=== PATIENT | female | born 1970 | race Caucasian/White ===

== ENCOUNTER → 2016-12-24 | Outpatient (CLI) | payer BC ==
--- NOTE | 2016-12-24 15:55 | KCIC ---
EXAM: Left second finger, 3 views. HISTORY: Blunt trauma. COMPARISON: None. FINDINGS: Frontal, lateral and oblique views of the left second finger are obtained. There is no fracture, dislocation or subluxation. No radiodense foreign body is seen. IMPRESSION: No acute osseous finding. Electronically signed by: Arminda Arana MD (12/24/2016 3:51 PM) [email or web address]
== END | disposition home or self-care (01) ==
LOC: KCIC 15:29
PROVIDERS: ATTEND Nurse Practitioner Family
DX: M79.645 Pain in left finger(s) (principal)
CPT/HCPCS: 73140

== ENCOUNTER → 2017-06-19 | Outpatient (CLI) | payer BC | END | disposition home or self-care (01) | LOC: US 08:25 | DX: E11.9 Type 2 diabetes mellitus without complications (principal); I11.9 Hypertensive heart disease without heart failure; E66.9 Obesity, unspecified; M79.605 Pain in left leg; M79.604 Pain in right leg; Z87.891 Personal history of nicotine dependence | CPT/HCPCS: 93306; 93923; 93970 ==

== ENCOUNTER → 2018-07-01 | Outpatient (CLI) | payer BC ==
--- NOTE | 2018-07-01 15:41 | KCIC ---
EXAM: Bilateral feet, 3 views. HISTORY: Pain. COMPARISON: None. FINDINGS: 3 views of both feet are obtained. There is no fracture, dislocation or subluxation. There is minimal first metatarsal phalangeal joint spurring. There is slight enthesopathy at the Achilles tendon insertions. There is a tiny left plantar spur. IMPRESSION: No acute osseous finding. Electronically signed by: Arminda Arana MD (07/01/2018 3:39 PM) [email or web address]
== END | disposition home or self-care (01) ==
LOC: KCIC 14:06
PROVIDERS: ATTEND Nurse Practitioner Family
DX: M77.52 Other enthesopathy of left foot and ankle (principal); M77.51 Other enthesopathy of right foot and ankle
CPT/HCPCS: 73630

== ENCOUNTER → 2018-08-27 | Outpatient (CLI) | payer BC ==
--- NOTE | 2018-08-27 12:03 | KCIC ---
MRI of the brain without contrast 08/27/2018 Clinical History: Headaches behind the right eye for 6 months. Gonzalez's palsy. Technique: Unenhanced T1-weighted sagittal and axial, T2-weighted axial and coronal and FLAIR, gradient echo and diffusion-weighted axial images of the brain were obtained. Findings: The ventricles and sulci are within normal limits in size and configuration. No area of significant abnormal signal intensity is seen involving brain parenchyma. No extra-axial fluid collection is seen. There is no MRI evidence of acute ischemia/infarction. The IACs are within normal limits. The orbits are within normal limits. The paranasal sinuses are essentially clear. There are minimal bilateral mastoid effusions, right greater than left. Normal flow voids are seen within the major vascular structures surrounding the brain parenchyma. Impression: Negative study. Electronically signed by: Tanner Pascual MD (08/27/2018 12:00 PM) [email or web address]
== END | disposition home or self-care (01) ==
LOC: KCIC MRI 10:15
PROVIDERS: ATTEND Psychiatry & Neurology Neurology with Special Qualifications in Child Neurology
DX: H74.8X3 Other specified disorders of middle ear and mastoid, bilateral (principal); G51.0 Bell's palsy
CPT/HCPCS: 70551

== ENCOUNTER → 2018-08-27 | Outpatient (CLI) | payer BC ==
--- NOTE | 2018-08-27 14:38 | KCIC ---
Bilateral digital screening mammograms with 3-D tomosynthesis: Reason for examination: Routine screening. Comparison is made to previous study dated 10/11/2011. Bilateral mammograms in CC and oblique projections were obtained with 2-D imaging and 3-D tomosynthesis imaging on a Siemens Inspiration unit and reviewed on the workstation. Interpretation was made with the benefit of CAD. The skin and nipples show no abnormalities. No abnormal axillary lymph nodes are seen. The breast parenchyma shows scattered fatty and fibroglandular density. (Breast density: Category B.) There are no dominant masses, suspicious calcifications or architectural distortion. There continues to be a small nodular density superiorly in the right breast on oblique view which is stable. There is also a small 5 mm nodular density in the 9:00 position of the right breast which is new since previous exam. Further evaluation with ultrasound is recommended. No other new cystic or solid lesions are seen. Impression: New 5 mm nodular density in the 9:00 position anteriorly in the right breast. Recommend further evaluation with ultrasound. BI-RADS Category 0: Incomplete. Needs additional imaging evaluation "Our facility is accredited by the [employer] Mammography [employer]." This patient's information has been entered into a reminder system for the patient to be notified with the results of her examination and a target date for the next mammogram. Electronically signed by: Leyla Fan MD (08/27/2018 2:34 PM) [email or web address]
== END | disposition home or self-care (01) ==
LOC: KCIC MAMMO 09:46
PROVIDERS: ATTEND Nurse Practitioner Family
DX: Z12.31 Encounter for screening mammogram for malignant neoplasm of breast (principal); N64.89 Other specified disorders of breast
CPT/HCPCS: 77063; 77067

== ENCOUNTER → 2018-09-02 | Outpatient (CLI) | payer BC ==
--- NOTE | 2018-09-02 13:19 | KCIC ---
Right breast ultrasound: Reason for examination: New density in 9:00 position anteriorly in the right breast on screening mammogram. Comparison is made to mammographic exam dated 08/27/2018. Ultrasound examination was performed in the area of mammographic concern and at the right axilla. In the 9:00 position 1 cm from the nipple, there is a small 3.6 mm hypoechoic fibrocystic type lesion present. No other cystic or solid lesions are identified. No abnormal appearing lymph nodes are seen in the axilla. IMPRESSION: Benign fibrocystic lesion at the 9:00 position 1 cm from the nipple. No suspicious abnormality seen. Recommend 6 month follow-up with ultrasound. BI-RADS Category 3: Probably Benign. "Our facility is accredited by the [employer] Mammography [employer]." This patient's information has been entered into a reminder system for the patient to be notified with the results of her examination and a target date for the next mammogram. Electronically signed by: Leyla Fan MD (09/02/2018 1:16 PM) [email or web address]
== END | disposition home or self-care (01) ==
LOC: KCIC US 12:22
PROVIDERS: ATTEND Nurse Practitioner Family
DX: N64.89 Other specified disorders of breast (principal)
CPT/HCPCS: 76641

== ENCOUNTER → 2019-03-17 | Outpatient (CLI) | payer BC ==
--- NOTE | 2019-03-17 09:27 | KCIC ---
Right breast ultrasound COMPARISON: Right breast ultrasound September 02, 2018, bilateral mammogram August 27, 2018 and priors. HISTORY: Follow-up of probably benign right breast subareolar cystic lesion 9:00 position. FINDINGS: At the right breast 9:00 position 1 cm from the nipple there is a 4 x 2 mm oval hypoechoic cystic structure without an intracystic nodule or internal vascularity. There is minimal duct ectasia posterior of this cyst without definite communication. This nodule is essentially stable to the prior study, previously measured 4 x 3 mm. No suspicious abnormality. IMPRESSION: Stable right outer subareolar breast small cystic lesion. This is probably benign. Attention on follow-up right breast ultrasound in 6 months is advised to document continued stability. BI-RADS Category 3: Probably benign Electronically signed by: Drake Garcia MD (03/17/2019 9:24 AM) [email or web address]
== END | disposition home or self-care (01) ==
LOC: KCIC US 08:40
PROVIDERS: ATTEND Nurse Practitioner Family
DX: N64.89 Other specified disorders of breast (principal)
CPT/HCPCS: 76641

== ENCOUNTER → 2019-12-21 | Outpatient (CLI) | payer BC ==
--- NOTE | 2019-12-21 13:35 | RAD ---
HIP RIGHT 2 VIEW DATE: 12/21/2019 12:00 AM INDICATION: RT HIP PAIN / Spl. Instructions: / History: COMPARISON: None. FINDINGS: Bones: There is no evidence of acute fracture or dislocation. Joints: The joint spaces are normal. Miscellaneous: None. IMPRESSION: No evidence of acute fracture. Electronically signed by: Pb Joseph MD (12/21/2019 1:32 PM) [id number]
--- NOTE | 2019-12-21 18:17 | RAD ---
EXAMINATION: Bilateral diagnostic mammogram, right breast ultrasound 12/21/2019 10:30 AM CLINICAL INDICATION: 48-year-old woman with six-month follow-up of right lesions, due for annual bilateral mammogram. COMPARISON: Right breast ultrasound 03/17/2019, 09/02/2018, and screening mammogram 08/27/2018 TECHNIQUE: Digital bilateral full-field CC and MLO views, and CC and MLO tomosynthesis views of the breasts were obtained. CAD was utilized. Right breast ultrasound was performed in the area of concern. FINDINGS: Mammogram: The breasts contain scattered areas of fibroglandular density. The 5 mm mass at 9:00, 1.2 cm posterior to the nipple is unchanged. There are 2 additional asymmetries in the medial right breast at anterior to middle depth and 1 asymmetry at the far posterior right breast just medial to the nipple. There is no suspicious mass in the left breast. No abnormal calcifications or architectural distortion in either breast. Spot compression cc view of the right breast demonstrates persistence of the asymmetries described above. Ultrasound: The round 5 mm cystic lesion at 9:00 1 cm from the nipple measures 3 x 3 x 3 mm, previously 4 x 4 x 2 mm. There is an adjacent prominent duct, unchanged. At 6:00, 4.5 cm from the nipple, there is an ovoid hypoechoic lesion with posterior acoustic enhancement measuring 3 x 3 x 2 mm. This may be a complicated cyst or fibrocystic change. At 3:00 3 cm from nipple, there is a similar-appearing lesion measuring 3 x 4 x 2 mm. IMPRESSION: 1. Stable probably benign 3 mm lesion at 9:00 1 cm from the nipple in the right breast, and 2 additional probably benign lesions in the inferior and medial right breast. 2. No evidence of malignancy in the left breast. 3. BI-RADS 3-probably benign. 3. Recommend 6 month follow-up ultrasound of the right breast lesions. A reminder letter will be sent to the patient when she is due for her exam. Electronically signed by: Minda Ochoa MD (12/21/2019 6:14 PM) [email or web address]
== END ==
LOC: MAMMO 09:26
PROVIDERS: ATTEND Nurse Practitioner Family
DX: R92.8 Other abnormal and inconclusive findings on diagnostic imaging of breast (principal); N63.13 Unspecified lump in the right breast, lower outer quadrant; M25.551 Pain in right hip
CPT/HCPCS: 73502; 76641; 77066; G0279; 77062

== ENCOUNTER → 2020-06-02 | Outpatient (CLI) | payer OTHER ==
--- NOTE | 2020-06-02 12:38 | KCIC ---
EXAM: Left shoulder, 3 views. HISTORY: Pain and limited range of motion. COMPARISON: None. FINDINGS: 3 views of the left shoulder obtained. There is no fracture, dislocation or subluxation. IMPRESSION: No acute osseous finding. Electronically signed by: Arminda Arana MD (06/02/2020 12:35 PM) [email or web address]
== END ==
LOC: KCIC 10:25
PROVIDERS: ATTEND Nurse Practitioner Family
DX: M25.512 Pain in left shoulder (principal)
CPT/HCPCS: 73030

== ENCOUNTER → 2020-07-14 | Outpatient (CLI) | payer OTHER ==
--- NOTE | 2020-07-14 14:59 | RAD ---
RIGHT BREAST SONOGRAPHY Clinical indications: Follow-up of 356 clock and endplate nodules of the right breast COMPARISON: December 21, 2019. FINDINGS: At the 3 clock position 3 cm from the nipple, a small hypoechoic nodule is seen measuring 4 mm. This is unchanged. The previously seen 6:00 nodule is not evident today. The previously seen 9:0 0 retroareolar nodule is not seen today. Sonography of the right axillary region demonstrates no abno rmal lymph nodes. IMPRESSION: Benign findings of the right breast. Recommend bilateral mammography in 6 months to get b ack onto the yearly screening schedule. BI-RADS Category 2 benign finding The patient information was entered into the data reminder system with a target due date for the next mammogram of January 14, 2021. Electronically signed by: Kenny Quiroga MD (07/14/2020 2:56 PM) [email or web address]
== END ==
LOC: US 13:50
PROVIDERS: ATTEND Nurse Practitioner Family
DX: R92.8 Other abnormal and inconclusive findings on diagnostic imaging of breast (principal)
CPT/HCPCS: 76641

== ENCOUNTER → 2020-11-09 | Outpatient (CLI) | payer OTHER ==
--- NOTE | 2020-11-09 11:32 | KCIC ---
CT of the abdomen and pelvis without contrast. 11/09/2020 10:38 AM Indication: Reason: Hematuria, recurrent UTIs, hx. kidney stones. / Comparison Study: None. Technique: Multidetector CT imaging of the abdomen pelvis is obtained without administration of contr ast. Findings: The visualized bilateral lung bases are clear. The liver, spleen, bilateral adrenal glands and pancreas have a normal noncontrast enhanced appearanc e. There is a 3 mm stone in the mid left kidney, nonobstructive. There is a 6 mm stone in the mid left kidney, nonobstructive. There is a 6 mm stone in the inferior left kidney nonobstructive. There is no hydronephrosis on the left. The ureter is normal in course and caliber. The bladder is unremarkable, though predominantly decompressed. There is no nephrolithiasis on the right. There is no hydronephrosis on the right. The right ureter i s normal in course and caliber. Hysterectomy noted. There is no significant free fluid or free air in the abdomen or pelvis. There is no evidence of bowel obstruction or significant inflamatory change There is no acute osseous abnorm ality identified. Impression: 1. Left-sided nephrolithiasis, with 3 nonobstructing stones as described above. No evidence of hydron ephrosis, or ureteral stone is identified. 2. Hysterectomy and cholecystectomy noted CT DOSING PQRS STATEMENT: One or more of the following individualized dose reduction techniques were utilized for this examinat ion: 1. Automated exposure control 2. Adjustment of the mA and/or kV according to patient size 3. Use of iterative reconstruction technique Electronically signed by: Minh Tinsley MD (11/09/2020 11:30 AM) [id number]
== END ==
LOC: KCIC CT 10:36
PROVIDERS: ATTEND Nurse Practitioner Family
DX: N20.0 Calculus of kidney (principal); R31.9 Hematuria, unspecified; Z90.49 Acquired absence of other specified parts of digestive tract; Z90.710 Acquired absence of both cervix and uterus
CPT/HCPCS: 74176